=== PATIENT | female | born 1940 | race Caucasian/White ===

== ENCOUNTER → 2017-04-04 | Outpatient (CLI) | payer MEDICARE, BC ==
[~2017-04-04] MED LIST: EVISTA60 MG PO
--- NOTE | 2017-04-04 15:33 | Diagnostic Imaging Report ---
TECHNIQUE: Magnetic resonance imaging of the LEFT KNEE was performed WITHOUT injected contrast. HISTORY: Left knee pain COMPARISON: None available. FINDINGS: LIGAMENTS AND TENDONS: ACL: Intact PCL: Intact Collateral ligaments: Intact Iliotibial band: Unremarkable Popliteal tendon: Intact Extensor mechanism: Intact JOINT: Menisci: Medial: Intact without discrete tear. Lateral: Degenerative signal within the anterior horn and body. Articular Cartilage: Medial Compartment: Partial-thickness cartilage loss Lateral Compartment: Partial thickness cartilage loss Patellofemoral Compartment: High-grade partial thickness cartilage loss Joint Fluid: Moderate joint effusion. Multilobulated Herron's cyst extending 7.5 cm in craniocaudal dimension. BONE: No focal or infiltrative bone marrow replacing abnormality. No acute fracture. SOFT TISSUES: Otherwise, unremarkable. 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 Tricompartmental cartilage loss, patellofemoral compartment predominant. Moderate joint effusion with large Herron's cyst. Signed by: Dr. Serafin Renee M.D. on 04/04/2017 3:30 PM
== END ==
LOC: MRI 14:10
PROVIDERS: ATTEND Family Medicine
DX: M25.562 Pain in left knee (principal); R93.7 Abnormal findings on diagnostic imaging of other parts of musculoskeletal system

== ENCOUNTER → 2017-11-23 | Outpatient (CLI) | payer MEDICARE, BC ==
--- NOTE | 2017-11-23 13:59 | Diagnostic Imaging Report ---
EXAMINATION: Head CT HISTORY: Right-sided migraine headaches for one week COMPARISON: None. TECHNIQUE: Multidetector axial images were obtained without contrast from the foramen magnum to the vertex . The images were reconstructed using brain and bone algorithms. Thin section brain images were reformatted into coronal and sagittal planes. Image quality: Motion/streaking artifact limits the evaluation of the skull base and posterior cranial fossa. Dose modulation, iterative reconstruction, and/or weight based adjustment of the mA/kV was utilized to reduce the radiation dose to as low as reasonably achievable. FINDINGS: Parenchyma: 1. No abnormal densities. 2. No mass or hemorrhage. No CT evidence of acute territorial vascular insult. Extra-axial spaces:No abnormal density. No extra-axial fluid collections Brain volume: Normal for age. Ventricles: No hydrocephalus or displacement. Arteries: No density suggestive of thrombus. Dural sinuses: No abnormal density. Extra-axial spaces: No abnormal density. Foramen magnum: No mass, Chiari malformation, or basilar invagination. Sella: No obvious mass. Paranasal/mastoid sinuses: Imaged portions unremarkable. Skull/Scalp: No lytic or blastic lesions. No fractures. IMPRESSION: No intracranial abnormalities, particularly no hemorrhage, mass or hydrocephalus. Signed by: Dr. Niki Browne M.D. on 11/23/2017 1:55 PM
== END ==
LOC: CT 13:11
PROVIDERS: ATTEND Family Medicine
DX: R51 Headache (principal); G31.84 Mild cognitive impairment of uncertain or unknown etiology
CPT/HCPCS: 70450